=== PATIENT | female | born 1990 | race Caucasian/White ===

== ENCOUNTER 2017-05-08 18:44 | Emergency (ER) | payer MEDICAID ==
[~2017-05-08] VITALS: Ht 162.6 cm; Wt 90.7 kg
[~2017-05-08 18:44] MED LIST: ACET-9525 PO; BACL20TA4 PO; IBUP-2217 PO
[2017-05-08 19:00] VITALS: BP 129/66
[2017-05-08 19:48] LABS: BASOPHILS # (AUTO) 0.1 K/uL (0.00-0.22); EOSINOPHILS # (AUTO) 0.1 K/uL (0-0.4); EOSINOPHILS % (AUTO) 1.7 % (0.0-4.0); HEMATOCRIT 41.8 % (36-48); LYMPHOCYTES # (AUTO) 1.7 K/uL (2.5-16.5); LYMPHOCYTES % (AUTO) 23.3 % (20.5-51.1); MEAN CORPUSCULAR HEMOGLOBIN 31 pg (27-31); MEAN CORPUSCULAR HGB CONC 34 g/dL (33-37); MEAN CORPUSCULAR VOLUME 92 fL (80-94); MONOCYTES # (AUTO) 0.6 K/uL (0.8-1.0); MONOCYTES % (AUTO) 7.9 % (1.7-9.3); NEUTROPHILS # (AUTO) 4.8 K/uL (1.8-7.7); NEUTROPHILS % (AUTO) 65.1 % (42.2-75.2); PLATELET COUNT (AUTO) 228 K/uL (140-450); RED BLOOD CELL COUNT(AUTO) 4.57 MIL/uL (4.20-5.40); RED CELL DISTRIBUTION WIDTH 11.2 % (11.6-13.7); WHITE BLOOD COUNT (AUTO) 7.3 K/uL (4.8-10.8)
[2017-05-08 20:03] LABS: ANION GAP 11.5 (8-16); CARBON DIOXIDE 28.4 mmol/L (21-32); CREATININE 0.7 mg/dL (0.6-1.3); POTASSIUM 3.9 mmol/L (3.5-5.1)
[2017-05-08 20:05] LABS: ALBUMIN 3.7 g/dL (3.4-5.0); TOTAL BILIRUBIN 0.3 mg/dL (0.0-1.0)
[2017-05-08 20:42] VITALS: BP 107/71
[2017-05-08 22:28] LABS: APPEARANCE,URINE HAZY (CLEAR); BILIRUBIN,URINE NEGATIVE (NEGATIVE); BLOOD, URINE 3+ (NEGATIVE); COLOR,URINE YELLOW (YELLOW); LEUKOCYTE ESTERASE ,URINE TRACE (NEGATIVE); NITRITE, URINE NEGATIVE (NEGATIVE); PH,URINE 7.5 (5.0-9.0); UGLUCOSE NEGATIVE (NEGATIVE)
[2017-05-08 22:49] LABS: RBC,URINE 0-5 (RARE) /HPF (0-5); WBC,URINE 0-5 (RARE) /HPF (0-5)
== END 2017-05-08 20:42 | disposition home or self-care (01) ==
LOC: MED 18:44
DX: O20.0 Threatened abortion (principal); O23.41 Unspecified infection of urinary tract in pregnancy, first trimester; R03.0 Elevated blood-pressure reading, without diagnosis of hypertension; Z3A.09 9 weeks gestation of pregnancy
CPT/HCPCS: 36415; 76817; 80053; 81001; 81025; 84702; 85025; 86900; 86901; 99285

== ENCOUNTER 2017-10-06 15:10 | Observation (INO) | payer MEDICAID ==
[~2017-10-06] VITALS: Ht 162.6 cm; Wt 97.5 kg
[2017-10-06] MEDS ORDERED: PREN-380 PO (15:22)
[2017-10-06] MEDS ORDERED: FERR-252 PO (15:22)
== END 2017-10-06 17:43 | disposition home or self-care (01) ==
LOC: MLD 15:10
PROVIDERS: ADMIT Obstetrics & Gynecology; ATTEND Obstetrics & Gynecology
DX: O26.893 Other specified pregnancy related conditions, third trimester (principal); N89.8 Other specified noninflammatory disorders of vagina; Z3A.31 31 weeks gestation of pregnancy
CPT/HCPCS: 76805; G0378; Q0092

== ENCOUNTER 2018-12-27 20:42 | Emergency (ER) | payer MEDICAID ==
[~2018-12-27] VITALS: Ht 162.6 cm; Wt 72.6 kg
[~2018-12-27 20:42] MED LIST changes: -ACET-9525 PO; -BACL20TA4 PO; +FERR-252 PO; -IBUP-2217 PO; +PREN-380 PO
[2018-12-27 20:55] VITALS: BP 113/65
--- NOTE | 2018-12-27 21:00 | NUR ---
PT AMBULATED TO BED 4. PROVIDED WITH URINE CUP.
--- NOTE | 2018-12-27 21:20 | NUR ---
NO HEART TONES HEARD VIA DOPPLER. DR. ANTOINE NOTIFIED. AWAITING US.
--- NOTE | 2018-12-27 21:30 | NUR ---
28 YO F BIB SELF PRESENTS TO ED REQUESTING AN US. PT STATES SHE BELIEVES SHE IS 16 WEEKS BUT WENT TO HAVE 4D/3D US WITH OBGYN TODAY AND NO HEART BEAT FOUND. SHE IS REQUESTING SECOND OPINION. LMP: 09/20/18. . DENIES VAG BLEEDING, ABD PAIN, FEVER, NVD. -- PT ALERT, CALM, COOPERATIVE, BEHAVIOR APPROPRIATE. -- SKIN PINK, WARM, DRY. BREATHING EVEN, UNLABORED. -- VSS PMH-- DENIES RX-- DENIES
--- NOTE | 2018-12-27 22:15 | NUR ---
US AT BEDSIDE.
--- NOTE | 2018-12-27 23:45 | NUR ---
PATIENT GIVEN PRINTOUT OF US, PT ADVISED TO FOLLOW UP WITH OB-EMERGENCY TELECOMMUNICATIONS DISPATCHER OR [facility]ED [facility].
[2018-12-27 23:47] VITALS: BP 138/82
--- NOTE | 2018-12-27 23:47 | NUR ---
Patient discharged with v/s stable. Written and verbal after care instructions given and explained. Patient verbalized understanding. Ambulatory with steady gait. All questions addressed prior to discharge. Advised to follow up with PMD.
== END 2018-12-27 23:47 | disposition home or self-care (01) ==
LOC: MED 20:42
DX: Z34.91 Encounter for supervision of normal pregnancy, unspecified, first trimester (principal); Z79.899 Other long term (current) drug therapy; Z3A.13 13 weeks gestation of pregnancy
CPT/HCPCS: 76815; 81002; 81025; 99284; Q0092

== ENCOUNTER 2019-07-10 13:34 | Emergency (ER) | payer MEDICAID ==
[~2019-07-10] VITALS: Ht 162.6 cm; Wt 68.0 kg
[2019-07-10 13:40] VITALS: BP 114/66
--- NOTE | 2019-07-10 13:40 | NUR ---
PT ARRIVED TO ED C/O V AND D X TUESDAY. PT STATES SHE HAD 5 EPISODES OF VOMITING AND UNKOWN EPISODES OF DIARRHEA. DENIES ANY PAIN. VSS. NO FEVER. ABD IS SOFT, FLAT, AND TENDERNESS ON LLQ. NO DISTRESS NOTED. PT ALSO STATES CHANGES IN APPETITE. NKA. NO PMH.
--- NOTE | 2019-07-10 14:19 | NUR ---
PA AT BEDSIDE.
[2019-07-10 14:39] VITALS: BP 114/66
--- NOTE | 2019-07-10 14:39 | NUR ---
Patient discharged with v/s stable. Written and verbal after care instructions given and explained. Patient alert, oriented and verbalized understanding of instructions. Ambulatory with steady gait. All questions addressed prior to discharge. ID band removed. Patient advised to follow up with PMD. Rx of ZOFRAN, AND IBUPROFEN given. Patient educated on indication of medication including possible reaction and side effects. Opportunity to ask questions provided and answered.
== END 2019-07-10 14:39 | disposition home or self-care (01) ==
LOC: MED 13:34
DX: A08.4 Viral intestinal infection, unspecified (principal); R11.10 Vomiting, unspecified
CPT/HCPCS: 99283